=== PATIENT | male | born 1940 | race Caucasian/White ===

== ENCOUNTER 2017-03-25 13:17 | Inpatient (IN) | payer OTHER, MEDICARE ==
[~2017-03-25] VITALS: Ht 172.7 cm; Wt 68.2 kg
[~2017-03-25 13:17] MED LIST: AGGRENOX1 CAPSULE PO; AMANTADINE100 MG; AMANTADINE100 MG PO; AMBIEN10 MG PO; ARICEPT5 MG PO; ARTANE2 MG PO; ASPIRIN E.C.81 M1; ATIVAN2 MG PO; ATORVASTATIN CA10 MG PO; ATORVASTATIN TAB 40M; Aranesp SC; BABY ASPIRIN81 M1 PO; BACTRIM,SEPT1 TABLET PO; BUPROPION HCL150 M2 PO; CALCITRIOL0.25 MCG; CARBIDOPA/LEVO1 EACH PO; CATAPRES0.1 MG PO; COLACE100 MG PO; COUMADIN4 MG PO; COUMADIN5 MG PO; COUMADIN6 MG PO; Cipro PO; D3 DOTS2000 UNIT PO; DEPAKENE250 MG/5 M PO; DEPAKOTE250 MG PO; DEPAKOTE500 MG PO; DITROPAN XL10 MG PO; DITROPAN5 MG; DIVALPROEX SOD250 MG; DIVALPROEX SOD500 M1 PO; DUONEB3 ML IH; DYAZIDE, MA1 CAPSULE PO; ENDOCET; ENDOCET 5-3251 EACH PO; ESKALITH300 M1 PO; Effexor PO; Effexor XR PO; GERI-LANTA LIQ355 ML PO; GUIATUSS100 MG/5 M PO; HYDROCODON-ACE1 EAC7 PO; K-DUR10 MEQ PO; LAMICTAL100 MG PO; LANTUS 10100 UNITS/ SC; LEVO-T25 MCG PO; LEVOTHROID100 MCG PO; LEVOTHYROXINE100 MCG; LEVOTHYROXINE100 MCG PO; LEVOTHYROXINE88 MCG PO; LIORESAL10 MG PO; LOVENOX80 MG/0.8 SC; Levothroid,Synthroid PO; MILK OF MAGN PO; MIRAPEX0.25 MG PO; NORCO 5/3251 TABLET PO; NORVASC2.5 MG PO; Nephro-Vite,Rena-Vit PO; OLANZAPINE10 MG; OLANZAPINE10 MG PO; OLANZAPINE15 MG PO; OXYBUTYNIN CHLOR5 MG PO; PRAMIPEXOLE D0.25 M1; PROMETHAZINE HC25 M1 PO; RANITIDINE HCL150 MG PO; REQUIP0.5 MG PO; REQUIP1 MG PO; ROBITUSSIN100 MG/5 M PO; ROCALTROL0.25 MCG PO; SIMVASTATIN40 MG PO; SINEMET 25-1001 EACH PO; SYMMETREL100 M1; SYMMETREL100 MG PO; SYNTHROID88 MCG PO; TYLENOL EXTRA500 MG PO; TYLENOL REGULA325 MG PO; Tylenol Regular Stre PO; ULTRAM50 MG PO; VENTOLIN HFA18 GM IH; VITAMIN D-32000 UNI2 PO; VITAMIN D-32000 UNIT PO; VITAMIN D32000 UNIT PO; Vitamin D, Drisdol PO; XANAX0.25 MG PO; XANAX0.5 MG PO; XANAX1 MG PO; Xanax PO; ZANTAC150 M1 PO; ZYPREXA10 MG PO; ZYPREXA2.5 MG PO; ZYPREXA5 MG PO; Zestril,Prinivil PO; Zocor PO
[2017-03-25 14:24] LABS: EOSINOPHIL (%) 2.4 % (0-5); EOSINOPHIL COUNT 0.2 K/uL (0-0.3); HEMATOCRIT 38.5 % (38.0-50.0); IMMATURE GRANULOCYTE (%) 0.6 % (0.0-0.7); IMMATURE GRANULOCYTE COUNT 0.1 K/uL; INSTRUMENT ABS NEUTROPHIL CT 5.7 K/uL; MCHC 33.8 G/DL (30.0-36.0); MCV 88.9 FL (86-99); MEAN PLAT.VOLUME 10.4 uM^3 (9.0-12.4); MONOCYTE (%) 11.6 % (3-12); MONOCYTE COUNT 0.9 K/uL (0-0.8); NEUTROPHIL (%) 72.1 % (45-76); NEUTROPHIL COUNT 5.7 K/uL (1.8-6.4); PLATELET COUNT 148 K/uL (156-360); RBC DIS.WIDTH-CV 12.2 % (11.8-14.6); RBC DIS.WIDTH-SD 39.9 % (39-53); RED BLOOD COUNT 4.33 M/uL (4.00-5.50); WHITE BLOOD COUNT 7.9 K/uL (4.1-10.2)
[2017-03-25 14:32] LABS: CHLORIDE 104 mEq/L (99-109); POTASSIUM 3.6 mEq/L (3.7-5.4); SODIUM 140 mEq/L (136-147)
[2017-03-25 14:34] LABS: GLUCOSE 111 mg/dL (70-99)
[2017-03-25 14:35] LABS: ANION GAP 13 MEQ/L (2-14)
[2017-03-25 14:36] LABS: TOTAL BILIRUBIN 0.7 mg/dL (0.0-1.0)
[2017-03-25 14:38] LABS: ALKALINE PHOSPHATASE 90 IU/L (3-129); GFR ESTIMATE (CALCULATED) 28 mL/min/
[2017-03-25 14:39] LABS: UREA NITROGEN (BUN) 32 mg/dL (9-23)
[2017-03-25 14:44] LABS: TROP-I INTERPRETATION NEGATIVE; TROPONIN-I 0.02 ng/mL (0.0-0.30)
[2017-03-25 15:36] LABS: ADD MIUA? YES; BILIRUBIN NEGATIVE; BLOOD SMALL; GLUCOSE (STRIP) NEGATIVE; KETONES NEGATIVE; LEUKOCYTES SMALL; NITRITE NEGATIVE; PROTEIN (STRIP) 100; SPECIFIC GRAVITY 1.016 (1.000-1.030); UROBILINOGEN 0.2 MG/DL (0.2-1.0)
[2017-03-25 15:38] LABS: COLOR STRAW ((YELLOW))
[2017-03-25 15:56] LABS: UCUL ADDED? YES; WHITE BLOOD CELLS TNTC /HPF (0-5)
[2017-03-25] MEDS ORDERED: MAXZIDE 37.5 M1 EACH PO (18:11)
[2017-03-25] MEDS ORDERED: ALLOPURINOL100 MG PO (18:12)
[2017-03-26 03:09] VITALS: BP 119/71
[2017-03-26 08:25] VITALS: BP 148/58
[2017-03-26 11:34] LABS: POINT-OF-CARE METER ID UU13113725
[2017-03-26 16:12] VITALS: BP 136/64
[2017-03-26 16:54] LABS: POINT-OF-CARE METER ID UU13113725
[2017-03-26 19:19] VITALS: BP 91/50
[2017-03-26 20:36] LABS: POINT-OF-CARE METER ID UU13113725
[2017-03-26 23:25] VITALS: BP 104/55
[2017-03-27 03:40] VITALS: BP 99/57
[2017-03-27 05:52] LABS: POINT-OF-CARE METER ID UU13113725
[2017-03-27 05:59] LABS: ALKALINE PHOSPHATASE 95 IU/L (3-129); ANION GAP 8 MEQ/L (2-14); CHLORIDE 102 MEQ/L (99-109); GFR ESTIMATE (CALCULATED) 35 mL/min/; GLUCOSE 92 mg/dL (70-99); POTASSIUM 3.1 MEQ/L (3.7-5.4); SAMPLE HEMOLYSIS CHECK 0; SAMPLE ICTERIC CHECK 0; SAMPLE LIPEMIA CHECK 0; SODIUM 135 MEQ/L (136-147); TOTAL BILIRUBIN 0.9 MG/DL (0.0-1.0); UREA NITROGEN (BUN) 21 mg/dL (9-23)
[2017-03-27 07:26] VITALS: BP 94/51
[2017-03-27 11:18] LABS: POINT-OF-CARE METER ID UU13113725
[2017-03-27 12:37] VITALS: BP 98/52
[2017-03-27 16:36] LABS: POINT-OF-CARE METER ID UU13113725
[2017-03-27 18:48] VITALS: BP 101/55
[2017-03-27 19:27] VITALS: BP 109/58
[2017-03-27 21:07] LABS: POINT-OF-CARE METER ID UU13113725
[2017-03-27 23:02] VITALS: BP 99/59
[2017-03-28 03:15] VITALS: BP 97/55
[2017-03-28 05:43] LABS: POINT-OF-CARE METER ID UU13113725
[2017-03-28 07:19] VITALS: BP 105/54
[2017-03-28 07:52] LABS: ANION GAP 7 MEQ/L (2-14); CHLORIDE 107 MEQ/L (99-109); GFR ESTIMATE (CALCULATED) 39 mL/min/; GLUCOSE 126 mg/dL (70-99); POTASSIUM 3.6 MEQ/L (3.7-5.4); SAMPLE HEMOLYSIS CHECK 0; SAMPLE ICTERIC CHECK 0; SAMPLE LIPEMIA CHECK 0; SODIUM 139 MEQ/L (136-147); UREA NITROGEN (BUN) 20 mg/dL (9-23)
[2017-03-28 11:30] LABS: POINT-OF-CARE METER ID UU13113725
[2017-03-28 11:36] VITALS: BP 105/58
[2017-03-28 16:32] LABS: POINT-OF-CARE METER ID UU13113725
[2017-03-28 16:51] VITALS: BP 99/50
[2017-03-28 23:06] VITALS: BP 96/52
[2017-03-29 08:30] LABS: CHLORIDE 111 mEq/L (99-109); POTASSIUM 3.9 mEq/L (3.7-5.4); SODIUM 142 mEq/L (136-147)
[2017-03-29 08:32] LABS: GLUCOSE 107 mg/dL (70-99)
[2017-03-29 08:34] LABS: ANION GAP 9 MEQ/L (2-14)
[2017-03-29 08:36] VITALS: BP 118/57
[2017-03-29 08:36] LABS: GFR ESTIMATE (CALCULATED) 37 mL/min/
[2017-03-29 08:37] LABS: UREA NITROGEN (BUN) 19 mg/dL (9-23)
[2017-03-29 15:47] VITALS: BP 113/58
[2017-03-29 23:59] VITALS: BP 112/60
[2017-03-30 06:04] LABS: POINT-OF-CARE METER ID UU13113725
[2017-03-30 08:02] LABS: POINT-OF-CARE METER ID UU13113725
[2017-03-30 12:00] VITALS: BP 118/59
[2017-03-30 12:02] LABS: POINT-OF-CARE METER ID UU13113725
[2017-03-30 16:45] LABS: POINT-OF-CARE METER ID UU13113725
[2017-03-30 20:58] LABS: POINT-OF-CARE METER ID UU13113725
[2017-03-30 23:00] VITALS: BP 105/53
[2017-03-31 07:05] VITALS: BP 102/53
[2017-03-31 11:31] LABS: POINT-OF-CARE METER ID UU13113725
[2017-03-31 16:29] VITALS: BP 110/64
[2017-03-31 16:31] LABS: POINT-OF-CARE METER ID UU13113725
[2017-03-31 20:53] LABS: POINT-OF-CARE METER ID UU13113725
[2017-03-31 23:16] VITALS: BP 121/57
[2017-04-01 06:20] LABS: POINT-OF-CARE METER ID UU13113725
[2017-04-01 07:19] VITALS: BP 121/64
[2017-04-01 15:57] VITALS: BP 145/68
[2017-04-01 19:08] VITALS: BP 118/79
[2017-04-01 23:06] VITALS: BP 95/53
[2017-04-02 07:07] VITALS: BP 130/67
[2017-04-02 11:33] LABS: POINT-OF-CARE METER ID UU13113725
[2017-04-02 16:25] VITALS: BP 124/64
[2017-04-02 16:46] LABS: POINT-OF-CARE METER ID UU13113725
[2017-04-03 00:08] VITALS: BP 102/54
[2017-04-03 07:04] LABS: ALKALINE PHOSPHATASE 70 IU/L (3-129); ANION GAP 10 MEQ/L (2-14); CHLORIDE 111 MEQ/L (99-109); GFR ESTIMATE (CALCULATED) 35 mL/min/; GLUCOSE 85 mg/dL (70-99); POTASSIUM 3.8 MEQ/L (3.7-5.4); SAMPLE HEMOLYSIS CHECK 0; SAMPLE ICTERIC CHECK 0; SAMPLE LIPEMIA CHECK 0; SODIUM 142 MEQ/L (136-147); TOTAL BILIRUBIN 0.6 MG/DL (0.0-1.0); UREA NITROGEN (BUN) 20 mg/dL (9-23)
[2017-04-03 07:22] LABS: HEMATOCRIT 33.9 % (38.0-50.0); MCH 31.1 PG (29.0-34.0); MCHC 33.3 G/DL (30.0-36.0); MEAN PLAT.VOLUME 10.9 uM^3 (9.0-12.4); PLATELET COUNT 127 K/uL (156-360); RBC DIS.WIDTH-CV 12.9 % (11.8-14.6); RBC DIS.WIDTH-SD 43.9 % (39-53); RED BLOOD COUNT 3.63 M/uL (4.00-5.50); WHITE BLOOD COUNT 7.8 K/uL (4.1-10.2)
[2017-04-03 07:26] VITALS: BP 101/55
[2017-04-03 07:29] LABS: MCV 93.4 FL (86-99)
[2017-04-03 15:13] VITALS: BP 107/55
[2017-04-03 20:59] LABS: POINT-OF-CARE METER ID UU13113725
[2017-04-03 22:57] VITALS: BP 120/58
[2017-04-04 06:12] LABS: POINT-OF-CARE METER ID UU13113725; POINT-OF-CARE USER ID 608261329
[2017-04-04 07:10] VITALS: BP 110/56
[2017-04-04] MEDS ORDERED: AUGMENTIN875 MG PO (09:21)
[2017-04-04 11:34] LABS: POINT-OF-CARE METER ID UU13113725
== END 2017-04-04 12:35 | disposition home or self-care (01) | DRG 872 ==
LOC: EME 13:17 → EDOF 21:26 → 5EAST 21:26 → EDOF 03-26 00:26 → 5EAST 03-26 00:28
PROVIDERS: Emergency Medicine; Internal Medicine
PROC: 0T9B70Z Drainage of Bladder with Drainage Device, Via Natural or Artificial Opening (ICD-10-PCS; principal; 2017-03-29)
DX: A41.9 Sepsis, unspecified organism (principal); N49.3 Fournier gangrene; N39.0 Urinary tract infection, site not specified; R62.7 Adult failure to thrive; G31.83 Neurocognitive disorder with Lewy bodies; F02.80 Dementia in other diseases classified elsewhere, unspecified severity, without behavioral disturbance, psychotic disturbance, mood disturbance, and anxiety; F31.9 Bipolar disorder, unspecified; F05 Delirium due to known physiological condition; N18.3 Chronic kidney disease, stage 3 (moderate); R65.20 Severe sepsis without septic shock; E03.9 Hypothyroidism, unspecified; I12.9 Hypertensive chronic kidney disease with stage 1 through stage 4 chronic kidney disease, or unspecified chronic kidney disease; E11.22 Type 2 diabetes mellitus with diabetic chronic kidney disease; N50.89 Other specified disorders of the male genital organs; F41.9 Anxiety disorder, unspecified; N28.1 Cyst of kidney, acquired; N20.0 Calculus of kidney; R32 Unspecified urinary incontinence; L89.219 Pressure ulcer of right hip, unspecified stage; N40.1 Benign prostatic hyperplasia with lower urinary tract symptoms; N13.8 Other obstructive and reflux uropathy; N17.9 Acute kidney failure, unspecified; N31.9 Neuromuscular dysfunction of bladder, unspecified; N39.498 Other specified urinary incontinence; R33.8 Other retention of urine; Z86.73 Personal history of transient ischemic attack (TIA), and cerebral infarction without residual deficits; Z87.891 Personal history of nicotine dependence; Z90.79 Acquired absence of other genital organ(s); Z82.49 Family history of ischemic heart disease and other diseases of the circulatory system; N32.81 Overactive bladder
CPT/HCPCS: 74176; 80048; 80053; 81003; 82948; 83605; 84484; 85025; 85027; 87040; 87086; 93005; 94799; 97530 GO; 97530 GP; 99281; 99284; J1644; J1815; J1956; J2060; J2270; J2543; J7050

== ENCOUNTER 2017-06-04 23:02 | Emergency (ER) | payer OTHER, MEDICARE ==
[~2017-06-04] VITALS: Ht 175.3 cm; Wt 73.6 kg
[~2017-06-04 23:02] MED LIST changes: +ALLOPURINOL100 MG PO; +AUGMENTIN875 MG PO; +MAXZIDE 37.5 M1 EACH PO
[2017-06-04 23:50] LABS: EOSINOPHIL (%) 1.5 % (0-5); EOSINOPHIL COUNT 0.2 K/uL (0-0.3); IMMATURE GRANULOCYTE (%) 0.4 % (0.0-0.7); INSTRUMENT ABS NEUTROPHIL CT 7.9 K/uL; LYMPHOCYTE COUNT 1.3 K/uL (1.0-2.8); MCH 28.7 PG (29.0-34.0); MCHC 32.6 G/DL (30.0-36.0); MCV 88.2 FL (86-99); MONOCYTE (%) 8.7 % (3-12); MONOCYTE COUNT 0.9 K/uL (0-0.8); NEUTROPHIL (%) 76.8 % (45-76); NEUTROPHIL COUNT 7.9 K/uL (1.8-6.4); PLATELET COUNT 109 K/uL (156-360); RBC DIS.WIDTH-CV 13.6 % (11.8-14.6); RBC DIS.WIDTH-SD 43.8 % (39-53); RED BLOOD COUNT 4.42 M/uL (4.00-5.50); WHITE BLOOD COUNT 10.2 K/uL (4.1-10.2)
[2017-06-04 23:56] LABS: PROTHROMBIN TIME 11.2 SEC (10.2-12.9)
[2017-06-04 23:58] LABS: PTT 30.4 SEC (25-37)
[2017-06-05] LABS: CHLORIDE 103 mEq/L (99-109); POTASSIUM 3.7 mEq/L (3.7-5.4); SODIUM 140 mEq/L (136-147)
[2017-06-05 00:01] LABS: GLUCOSE 109 mg/dL (70-99)
[2017-06-05 00:03] LABS: ANION GAP 12 MEQ/L (2-14)
[2017-06-05 00:05] LABS: GFR ESTIMATE (CALCULATED) 27 mL/min/
[2017-06-05 00:06] LABS: UREA NITROGEN (BUN) 41 mg/dL (9-23)
[2017-06-05 00:54] LABS: ADD MIUA? YES; BILIRUBIN NEGATIVE; BLOOD MODERATE; COLOR AMBER ((YELLOW)); GLUCOSE (STRIP) NEGATIVE; KETONES NEGATIVE; LEUKOCYTES MODERATE; NITRITE POSITIVE; PROTEIN (STRIP) >=500; SPECIFIC GRAVITY 1.012 (1.000-1.030); UROBILINOGEN 0.2 MG/DL (0.2-1.0)
[2017-06-05 01:02] LABS: RED BLOOD CELLS TNTC /HPF (0-5); UCUL ADDED? YES; WHITE BLOOD CELLS TNTC /HPF (0-5)
[2017-06-05] MEDS ORDERED: KEFLEX500 MG PO (01:44)
[2017-06-05 02:42] VITALS: BP 151/86
== END 2017-06-05 02:45 ==
LOC: EME 23:02
PROVIDERS: Emergency Medicine
PROC: 0T9B70Z Drainage of Bladder with Drainage Device, Via Natural or Artificial Opening (ICD-10-PCS; principal; 2017-06-04)
DX: N30.01 Acute cystitis with hematuria (principal); T83.028A Displacement of other urinary catheter, initial encounter; I10 Essential (primary) hypertension; E78.5 Hyperlipidemia, unspecified; E11.9 Type 2 diabetes mellitus without complications; G20 Parkinson's disease; N40.0 Benign prostatic hyperplasia without lower urinary tract symptoms; F32.9 Major depressive disorder, single episode, unspecified; J45.909 Unspecified asthma, uncomplicated; N28.9 Disorder of kidney and ureter, unspecified; F41.9 Anxiety disorder, unspecified; F39 Unspecified mood [affective] disorder; Z87.891 Personal history of nicotine dependence; Z85.89 Personal history of malignant neoplasm of other organs and systems; Z98.890 Other specified postprocedural states
CPT/HCPCS: 74176; 80048; 81003; 85025; 85610; 85730; 87077; 87086; 87186; 99281; 99284

== ENCOUNTER 2017-07-14 18:04 | Inpatient (IN) | payer OTHER, MEDICARE ==
[~2017-07-14] VITALS: Ht 175.3 cm; Wt 78.0 kg
[~2017-07-14 18:04] MED LIST changes: +KEFLEX500 MG PO
[2017-07-14 18:49] LABS: HEMATOCRIT 39.1 % (38.0-50.0); MCH 28.7 PG (29.0-34.0); MCV 89.7 FL (86-99); RBC DIS.WIDTH-CV 14.1 % (11.8-14.6); RBC DIS.WIDTH-SD 45.4 % (39-53); RED BLOOD COUNT 4.36 M/uL (4.00-5.50)
[2017-07-14 18:55] LABS: CHLORIDE 107 mEq/L (99-109); POTASSIUM 3.2 mEq/L (3.7-5.4); SODIUM 143 mEq/L (136-147)
[2017-07-14 18:56] LABS: GLUCOSE 131 mg/dL (70-99)
[2017-07-14 18:58] LABS: ANION GAP 19 MEQ/L (2-14)
[2017-07-14 19:00] LABS: GFR ESTIMATE (CALCULATED) 27 mL/min/
[2017-07-14 19:00] LABS: ADD MIUA? YES; BILIRUBIN NEGATIVE; BLOOD LARGE; GLUCOSE (STRIP) NEGATIVE; KETONES NEGATIVE; LEUKOCYTES MODERATE; PROTEIN (STRIP) 100; SPECIFIC GRAVITY 1.012 (1.000-1.030)
[2017-07-14 19:01] LABS: UREA NITROGEN (BUN) 42 mg/dL (9-23)
[2017-07-14 19:03] LABS: COLOR RED ((YELLOW))
[2017-07-14 19:04] LABS: NITRITE NEGATIVE; RED BLOOD CELLS TNTC /HPF (0-5); UCUL ADDED? YES
[2017-07-14 19:31] LABS: ABS NEUTROPHIL COUNT 0.9; ANISOCYTOSIS 1+; BAND NEUTROPHILS 29.8 % (0-8.0); BASOPHILS 0.9 %; EOSINOPHIL ABS CT 0; INSTRUMENT ABS NEUTROPHIL CT 0.9 K/uL; LYMPHOCYTES 2.6 % (15.0-45.0); METAMYELOCYTES 3.5 %; MICROCYTOSIS 1+; MYELOCYTES 1.8 %; NUCLEATED RBC'S 0.9; PLAT.SUFFICIENCY DECREASED; PLATELET CLUMPS PRESENT - PLATELET COUNTS APPEARS DECREASED; SEG.NEUTROPHILS 61.4 % (46.0-76.0); TOX.VACUOLIZATION 1+
[2017-07-14 19:32] LABS: PLATELET COUNT UNABLE TO REPORT K/uL (156-360)
[2017-07-14] MEDS ORDERED: COLACE100 MG PO (23:42)
[2017-07-14] MEDS ORDERED: TRIAMTERENE-HC1 EAC1 PO (23:51)
[2017-07-14] MEDS ORDERED: ACETAMINOPHEN325 M1 PO (23:53)
[2017-07-14] MEDS ORDERED: [UNRECOGNIZED DRUG - OTHER] (23:54)
[2017-07-14] MEDS ORDERED: GLUTOSE 1537.5 GM PO (23:58)
[2017-07-14] MEDS ORDERED: ZOFRAN4 MG PO (23:59)
[2017-07-15] VITALS (17 sets, daily range): BP systolic 69–111; BP diastolic 38–78
[2017-07-15] MEDS ORDERED: PYRIDIUM200 MG PO
[2017-07-15] MEDS ORDERED: MIRALAX17 GM PO (00:01)
[2017-07-15 02:17] LABS: METH RESISTANT S AUREUS PCR NEGATIVE (NEGATIVE)
[2017-07-15 02:26] LABS: PROBE CHECK PASS; SPECIMEN PROCESSING CONTROL PASS
[2017-07-15 02:50] LABS: HEMATOCRIT 32.8 % (38.0-50.0); MCH 28.7 PG (29.0-34.0); MCHC 32.3 G/DL (30.0-36.0); MCV 88.9 FL (86-99); RBC DIS.WIDTH-CV 13.9 % (11.8-14.6); RBC DIS.WIDTH-SD 45.1 % (39-53); RED BLOOD COUNT 3.69 M/uL (4.00-5.50); WHITE BLOOD COUNT 8.2 K/uL (4.1-10.2)
[2017-07-15 02:52] LABS: CHLORIDE 112 mEq/L (99-109); POTASSIUM 2.9 mEq/L (3.7-5.4); SODIUM 140 mEq/L (136-147)
[2017-07-15 02:54] LABS: GLUCOSE 142 mg/dL (70-99)
[2017-07-15 02:55] LABS: ANION GAP 13 MEQ/L (2-14)
[2017-07-15 02:58] LABS: ALKALINE PHOSPHATASE 177 IU/L (3-129); GFR ESTIMATE (CALCULATED) 28 mL/min/
[2017-07-15 02:59] LABS: UREA NITROGEN (BUN) 40 mg/dL (9-23)
[2017-07-15 03:32] LABS: MEAN PLAT.VOLUME 10.8 uM^3 (9.0-12.4); PLAT.SUFFICIENCY DECREASED
[2017-07-15 03:34] LABS: PLATELET COUNT 67 K/uL (156-360)
[2017-07-15 11:59] LABS: POINT-OF-CARE METER ID UU13113781
[2017-07-15 12:44] LABS: METH RESISTANT S AUREUS PCR ND (NEGATIVE)
[2017-07-15 17:55] LABS: POINT-OF-CARE METER ID UU13113748
[2017-07-15 21:46] LABS: POINT-OF-CARE METER ID UU14162636; POINT-OF-CARE USER ID PHATLC
[2017-07-15 22:48] LABS: POINT-OF-CARE METER ID UU14162636; POINT-OF-CARE USER ID PHATLC
[2017-07-16] VITALS (24 sets, daily range): BP systolic 84–140; BP diastolic 52–92
[2017-07-16 03:17] LABS: POINT-OF-CARE METER ID UU14174217; POINT-OF-CARE USER ID PHATLC
[2017-07-16 05:02] LABS: HEMATOCRIT 36.6 % (38.0-50.0); MCH 28.5 PG (29.0-34.0); MCHC 32.2 G/DL (30.0-36.0); MCV 88.4 FL (86-99); PLATELET COUNT 59 K/uL (156-360); RBC DIS.WIDTH-CV 14.2 % (11.8-14.6); RBC DIS.WIDTH-SD 45.8 % (39-53); RED BLOOD COUNT 4.14 M/uL (4.00-5.50); WHITE BLOOD COUNT 14.1 K/uL (4.1-10.2)
[2017-07-16 05:11] LABS: CHLORIDE 114 mEq/L (99-109); POTASSIUM 4.2 mEq/L (3.7-5.4); SODIUM 142 mEq/L (136-147)
[2017-07-16 05:14] LABS: ANION GAP 14 MEQ/L (2-14)
[2017-07-16 05:15] LABS: TOTAL BILIRUBIN 2.2 mg/dL (0.0-1.0)
[2017-07-16 05:16] LABS: ALKALINE PHOSPHATASE 193 IU/L (3-129)
[2017-07-16 05:18] LABS: GFR ESTIMATE (CALCULATED) 22 mL/min/; GLUCOSE 75 mg/dL (70-99); UREA NITROGEN (BUN) 55 mg/dL (9-23)
[2017-07-16 05:47] LABS: HEMATOLOGY COMMENT 1 SN
[2017-07-16 08:07] LABS: POINT-OF-CARE METER ID UU14174217
[2017-07-16 08:34] LABS: ABS NEUTROPHIL COUNT 12.5; ANISOCYTOSIS 1+; BURR CELLS 2+; EOSINOPHIL ABS CT 0; INSTRUMENT ABS NEUTROPHIL CT 11.1 K/uL; MACROCYTES 1+; PLAT.SUFFICIENCY DECREASED; POIKILOCYTOSIS 2+
[2017-07-16 11:44] LABS: HBSG INDEX 0.18; HPCA INDEX 0.18
[2017-07-16 11:45] LABS: ANTI-HEPATITIS A VIRUS (IGM) Nonreactive; HAV INDEX 0.17
[2017-07-16 11:46] LABS: ANTI-HEPATITIS B CORE (IGM) Nonreactive; HBC IgM INDEX 0.07
[2017-07-16 12:11] LABS: POINT-OF-CARE METER ID UU14174217
[2017-07-16 16:59] LABS: POINT-OF-CARE METER ID UU14174217
[2017-07-16 23:04] LABS: POINT-OF-CARE METER ID UU14174217
[2017-07-17] VITALS (24 sets, daily range): BP systolic 89–137; BP diastolic 46–81
[2017-07-17 06:47] LABS: HEMATOCRIT 31.9 % (38.0-50.0); MCH 29.9 PG (29.0-34.0); MCHC 33.2 G/DL (30.0-36.0); MCV 89.9 FL (86-99); PLATELET COUNT 52 K/uL (156-360); RBC DIS.WIDTH-CV 14.7 % (11.8-14.6); RBC DIS.WIDTH-SD 48.9 % (39-53); RED BLOOD COUNT 3.55 M/uL (4.00-5.50); WHITE BLOOD COUNT 14.7 K/uL (4.1-10.2)
[2017-07-17 07:15] LABS: ALKALINE PHOSPHATASE 170 IU/L (3-129); ANION GAP 13 MEQ/L (2-14); CHLORIDE 118 MEQ/L (99-109); GFR ESTIMATE (CALCULATED) 30 mL/min/; POTASSIUM 3.8 MEQ/L (3.7-5.4); SAMPLE HEMOLYSIS CHECK 0; SAMPLE ICTERIC CHECK 0; SAMPLE LIPEMIA CHECK 0; SODIUM 147 MEQ/L (136-147); TOTAL BILIRUBIN 1.3 MG/DL (0.0-1.0); UREA NITROGEN (BUN) 51 mg/dL (9-23)
[2017-07-17 07:17] LABS: GLUCOSE 137 mg/dL (70-99)
[2017-07-17 08:22] LABS: POINT-OF-CARE METER ID UU13113803
[2017-07-17 12:29] LABS: POINT-OF-CARE METER ID UU13113803
[2017-07-17 16:44] LABS: POINT-OF-CARE METER ID UU13113803
[2017-07-17 21:39] LABS: POINT-OF-CARE METER ID UU13113803
[2017-07-18] VITALS (15 sets, daily range): BP systolic 82–133; BP diastolic 45–75
[2017-07-18 05:34] LABS: HEMATOCRIT 31.3 % (38.0-50.0); MCH 28.6 PG (29.0-34.0); MCHC 31.9 G/DL (30.0-36.0); MCV 89.4 FL (86-99); RBC DIS.WIDTH-CV 14.9 % (11.8-14.6); RBC DIS.WIDTH-SD 48.7 % (39-53); WHITE BLOOD COUNT 11.1 K/uL (4.1-10.2)
[2017-07-18 06:03] LABS: IMM.PLATELET FRACTION 7.3 (1-7); MEAN PLAT.VOLUME 13.3 uM^3 (9.0-12.4); PLATELET COUNT 50 K/uL (156-360)
[2017-07-18 06:18] LABS: ALKALINE PHOSPHATASE 162 IU/L (3-129); ANION GAP 8 MEQ/L (2-14); CHLORIDE 122 MEQ/L (99-109); GFR ESTIMATE (CALCULATED) 30 mL/min/; GLUCOSE 107 mg/dL (70-99); POTASSIUM 3.8 MEQ/L (3.7-5.4); SAMPLE HEMOLYSIS CHECK 0; SAMPLE ICTERIC CHECK 0; SAMPLE LIPEMIA CHECK 0; SODIUM 151 MEQ/L (136-147); UREA NITROGEN (BUN) 44 mg/dL (9-23)
[2017-07-18 06:19] LABS: TOTAL BILIRUBIN 0.9 MG/DL (0.0-1.0)
[2017-07-18 09:15] LABS: POINT-OF-CARE METER ID UU13113803
[2017-07-18 12:33] LABS: POINT-OF-CARE METER ID UU13113803
[2017-07-18 17:42] LABS: POINT-OF-CARE METER ID UU13113803
[2017-07-19] VITALS: BP 106/52
[2017-07-19 00:59] LABS: POINT-OF-CARE METER ID UU13113803
[2017-07-19 04:00] VITALS: BP 106/57
[2017-07-19 05:50] LABS: EOSINOPHIL (%) 3.6 % (0-5); EOSINOPHIL COUNT 0.3 K/uL (0-0.3); HEMATOCRIT 31.3 % (38.0-50.0); IMMATURE GRANULOCYTE (%) 0.6 % (0.0-0.7); LYMPHOCYTE COUNT 0.9 K/uL (1.0-2.8); MCH 28.1 PG (29.0-34.0); MCHC 31.6 G/DL (30.0-36.0); MCV 88.9 FL (86-99); MONOCYTE (%) 9.9 % (3-12); MONOCYTE COUNT 0.7 K/uL (0-0.8); NEUTROPHIL (%) 72.2 % (45-76); RBC DIS.WIDTH-CV 15.1 % (11.8-14.6); RBC DIS.WIDTH-SD 48.9 % (39-53); RED BLOOD COUNT 3.52 M/uL (4.00-5.50); WHITE BLOOD COUNT 6.9 K/uL (4.1-10.2)
[2017-07-19 06:16] LABS: ANION GAP 10 MEQ/L (2-14); CHLORIDE 122 MEQ/L (99-109); GFR ESTIMATE (CALCULATED) 27 mL/min/; GLUCOSE 135 mg/dL (70-99); POTASSIUM 4.2 MEQ/L (3.7-5.4); SAMPLE HEMOLYSIS CHECK 0; SAMPLE ICTERIC CHECK 0; SAMPLE LIPEMIA CHECK 0; SODIUM 153 MEQ/L (136-147); UREA NITROGEN (BUN) 43 mg/dL (9-23)
[2017-07-19 07:07] LABS: IMM.PLATELET FRACTION 6.4 (1-7); PLAT.SUFFICIENCY DECREASED; PLATELET COUNT 45 K/uL (156-360)
[2017-07-19 08:00] VITALS: BP 132/61
[2017-07-19 09:06] LABS: POINT-OF-CARE METER ID UU14162636
[2017-07-19 12:00] VITALS: BP 133/51
[2017-07-19 12:25] LABS: POINT-OF-CARE METER ID UU14162636
[2017-07-19 16:31] LABS: POINT-OF-CARE METER ID UU14162636
[2017-07-19 17:51] VITALS: BP 132/74
[2017-07-19 19:00] VITALS: BP 132/70
[2017-07-20] VITALS (7 sets, daily range): BP systolic 117–143; BP diastolic 59–78
[2017-07-20 08:09] LABS: HEMATOCRIT 32.5 % (38.0-50.0); MCH 28.6 PG (29.0-34.0); MCV 89.3 FL (86-99); MEAN PLAT.VOLUME 12.1 uM^3 (9.0-12.4); PLATELET COUNT 56 K/uL (156-360); RBC DIS.WIDTH-CV 14.8 % (11.8-14.6); RBC DIS.WIDTH-SD 49.1 % (39-53); RED BLOOD COUNT 3.64 M/uL (4.00-5.50); WHITE BLOOD COUNT 6.2 K/uL (4.1-10.2)
[2017-07-20 08:26] LABS: ANION GAP 11 MEQ/L (2-14); CHLORIDE 121 MEQ/L (99-109); POTASSIUM 3.8 MEQ/L (3.7-5.4); SAMPLE HEMOLYSIS CHECK 0; SAMPLE ICTERIC CHECK 0; SAMPLE LIPEMIA CHECK 0; SODIUM 153 MEQ/L (136-147)
[2017-07-20 08:32] LABS: GFR ESTIMATE (CALCULATED) 28 mL/min/; GLUCOSE 141 mg/dL (70-99); UREA NITROGEN (BUN) 45 mg/dL (9-23)
[2017-07-20 09:37] LABS: POINT-OF-CARE METER ID UU14162636
[2017-07-20 13:25] LABS: POINT-OF-CARE METER ID UU14162636
[2017-07-20 16:44] LABS: POINT-OF-CARE METER ID UU14162636
[2017-07-20 21:44] LABS: POINT-OF-CARE METER ID UU13113725
[2017-07-21 00:08] VITALS: BP 164/108
[2017-07-21 07:10] VITALS: BP 129/60
[2017-07-21 11:25] VITALS: BP 120/60
[2017-07-21 15:32] VITALS: BP 121/60
[2017-07-21 20:13] VITALS: BP 130/68
[2017-07-21 23:55] VITALS: BP 107/59
[2017-07-22 06:58] LABS: ALKALINE PHOSPHATASE 117 IU/L (3-129); ANION GAP 9 MEQ/L (2-14); CHLORIDE 114 MEQ/L (99-109); GFR ESTIMATE (CALCULATED) 33 mL/min/; GLUCOSE 132 mg/dL (70-99); POTASSIUM 3.5 MEQ/L (3.7-5.4); SAMPLE HEMOLYSIS CHECK 0; SAMPLE ICTERIC CHECK 0; SAMPLE LIPEMIA CHECK 0; SODIUM 146 MEQ/L (136-147); TOTAL BILIRUBIN 0.8 MG/DL (0.0-1.0); UREA NITROGEN (BUN) 44 mg/dL (9-23)
[2017-07-22 08:11] VITALS: BP 123/68
[2017-07-22 12:41] VITALS: BP 109/57
[2017-07-22 16:36] VITALS: BP 119/61
[2017-07-22 19:30] VITALS: BP 117/57
[2017-07-22 20:48] LABS: POINT-OF-CARE METER ID UU13113725
[2017-07-23 00:40] VITALS: BP 116/61
[2017-07-23 05:57] LABS: POINT-OF-CARE METER ID UU13113725
[2017-07-23 06:09] LABS: MCH 29.6 PG (29.0-34.0); MCHC 33.3 G/DL (30.0-36.0); MCV 88.9 FL (86-99); MEAN PLAT.VOLUME 13.4 uM^3 (9.0-12.4); RBC DIS.WIDTH-CV 14.5 % (11.8-14.6); RBC DIS.WIDTH-SD 46.5 % (39-53); RED BLOOD COUNT 3.71 M/uL (4.00-5.50); WHITE BLOOD COUNT 7.3 K/uL (4.1-10.2)
[2017-07-23 06:18] LABS: PLATELET COUNT 120 K/uL (156-360)
[2017-07-23 06:25] LABS: ANION GAP 11 MEQ/L (2-14); CHLORIDE 112 MEQ/L (99-109); GFR ESTIMATE (CALCULATED) 37 mL/min/; GLUCOSE 99 mg/dL (70-99); POTASSIUM 3.5 MEQ/L (3.7-5.4); SAMPLE HEMOLYSIS CHECK 0; SAMPLE ICTERIC CHECK 0; SAMPLE LIPEMIA CHECK 0; SODIUM 143 MEQ/L (136-147); UREA NITROGEN (BUN) 40 mg/dL (9-23)
[2017-07-23 07:54] VITALS: BP 124/56
[2017-07-23] MEDS ORDERED: CEFEPIME HCL2 GM IM (08:37)
[2017-07-23 11:10] LABS: POINT-OF-CARE METER ID UU13113725
[2017-07-23 15:40] VITALS: BP 126/60
== END 2017-07-23 18:50 | DRG 871 ==
LOC: EME 18:04 → 4WEST 22:20 → EDOF 22:20 → 4EAST 22:20 → ENRESERV 22:21 → 4EAST 07-15 00:09 → 4WEST 07-15 12:08 → ENRESERV 07-15 12:12 → 4WEST 07-15 12:14 → ENRESERV 07-15 12:24 → CANRESERV 07-15 12:24 → 4WEST 07-18 12:03 → ENRESERV 07-20 15:29 → 5EAST 07-20 17:21
PROVIDERS: Family Medicine; Internal Medicine; Internal Medicine Critical Care Medicine; Internal Medicine Pulmonary Disease; Specialist
DX: A41.52 Sepsis due to Pseudomonas (principal); N17.0 Acute kidney failure with tubular necrosis; R65.21 Severe sepsis with septic shock; E11.52 Type 2 diabetes mellitus with diabetic peripheral angiopathy with gangrene; T83.511A Infection and inflammatory reaction due to indwelling urethral catheter, initial encounter; E87.2 Acidosis; A41.59 Other Gram-negative sepsis; D69.6 Thrombocytopenia, unspecified; N40.0 Benign prostatic hyperplasia without lower urinary tract symptoms; E86.1 Hypovolemia; E11.22 Type 2 diabetes mellitus with diabetic chronic kidney disease; J45.909 Unspecified asthma, uncomplicated; G20 Parkinson's disease; F31.9 Bipolar disorder, unspecified; E03.9 Hypothyroidism, unspecified; E78.5 Hyperlipidemia, unspecified; N28.9 Disorder of kidney and ureter, unspecified; F41.9 Anxiety disorder, unspecified; I10 Essential (primary) hypertension; N18.3 Chronic kidney disease, stage 3 (moderate); B96.4 Proteus (mirabilis) (morganii) as the cause of diseases classified elsewhere; I25.10 Atherosclerotic heart disease of native coronary artery without angina pectoris; N30.91 Cystitis, unspecified with hematuria; F02.80 Dementia in other diseases classified elsewhere, unspecified severity, without behavioral disturbance, psychotic disturbance, mood disturbance, and anxiety; K76.89 Other specified diseases of liver; Z68.29 Body mass index [BMI] 29.0-29.9, adult; Y84.6 Urinary catheterization as the cause of abnormal reaction of the patient, or of later complication, without mention of misadventure at the time of the procedure; D70.9 Neutropenia, unspecified; Z86.718 Personal history of other venous thrombosis and embolism; Z87.891 Personal history of nicotine dependence; Z96.0 Presence of urogenital implants; Z85.828 Personal history of other malignant neoplasm of skin
CPT/HCPCS: 71010; 80048; 80053; 80074; 81003; 82948; 83605; 85025; 85027; 87040; 87077; 87086; 87186; 87641; 87801; 94799; 97530 GO; 97530 GP; 99281; 99285; J0692; J0696; J1630; J1815; J2060; J2405; J3370; J7030; J7050